=== PATIENT | female | born 1985 | race Caucasian/White ===

== ENCOUNTER 2018-12-08 15:46 | Emergency (ER) | payer MEDICAID ==
[~2018-12-08] VITALS: Ht 162.6 cm; Wt 96.5 kg
[~2018-12-08 15:46] MED LIST: ACET325T33 PO
[2018-12-08 15:49] VITALS: Ht 162.6 cm; Wt 96.5 kg
[2018-12-08 16:00] VITALS: BP 123/70; PULSE 84; RESP 16
--- NOTE | 2018-12-08 17:00 | ERD ---
ER Documentation Chief Complaint Chief Complaint sent from dental office , locked jaw while dental procedure HPI Patient is a 33-year-old female with no medical problems who presents with a jaw dislocation. The patient was at a dental office getting work done and had a jaw dislocation that they were unable to relocate. She said that her jaw is been dislocated for about 2 hours. Upon review of old medical records the patient has one previous visit to the ER. She has had no medications as of yet. ROS All systems reviewed and are negative except as per history of present illness. Medications Home Meds Reported Medications Acetaminophen* (Tylenol*) 325 Mg Tablet, 325 MG PO 07/13/13 Allergies Allergies: Coded Allergies: No Known Allergy (Unverified , 07/13/13) PMhx/Soc History of Surgery: Yes (C section) Anesthesia Reaction: No Hx Neurological Disorder: No Hx Respiratory Disorders: No Hx Cardiac Disorders: No Hx Psychiatric Problems: No Hx Miscellaneous Medical Probl: No Hx Alcohol Use: No Hx Substance Use: No Hx Tobacco Use: No Smoking Status: Never smoker FmHx Family History: No diabetes Physical Exam Vitals Vital Signs Date Temp Pulse Resp B/P (MAP) Pulse Ox O2 O2 Flow FiO2 Time Delivery Rate 12/08/18 98.1 84 16 123/70 99 Room Air 16:00 (87) 12/08/18 98.1 76 16 123/70 99 15:49 (87) Physical Exam Const: Moderate distress Head: Atraumatic Eyes: Normal Conjunctiva ENT: Mouth is open and patient is unable to close jaw at this time Neck: Full range of motion. No meningismus. Resp: Clear to auscultation bilaterally Cardio: Regular rate and rhythm, no murmurs Abd: Soft, non tender, non distended. Normal bowel sounds Skin: No petechiae or rashes Back: No midline or flank tenderness Ext: No cyanosis, or edema Neur: Awake and alert Psych: Normal Mood and Affect Procedures/MDM Dislocation reduction: I used an extra oral technique and was able to put pressure posteriorly on the left TMJ and pull the right mandible anteriorly. Within seconds I felt a clunk in the patient's jaw was relocated without difficulty. She tolerated the entire procedure. No sedation or pain medication was needed. Patient is a 33-year-old female who presents with a jaw dislocation. I reduce the jaw dislocation with an extraoral technique. The patient tolerated the entire procedure. She will be discharged home. She was instructed not to open her mouth to widely and to eat small meals within the next few days. Departure Diagnosis: Primary Impression: Jaw dislocation Encounter type: initial encounter Qualified Codes: S03.00XA - Dislocation of jaw, unspecified side, initial encounter Condition: Fair Patient Instructions: Mandible Dislocation Referrals: Your doctor Additional Instructions: Llame al doctor nombrado abajo (Referral Sources) MAANA y mary elizabet AUDRA PARA DENTRO DE ELIZABET SEMANA. Dgale a la secretaria que nosotros le instruimos hacer esta audra.Avise o llame si cook condicin se empeora antes de la audra. ABDOUL VAZQUEZ MD Dec 08, 2018 17:00
== END 2018-12-08 16:25 | disposition home or self-care (01) ==
LOC: E/R 15:46
DX: S03.00XA Dislocation of jaw, unspecified side, initial encounter (principal); X58.XXXA Exposure to other specified factors, initial encounter; Y92.9 Unspecified place or not applicable
CPT/HCPCS: 21480; Z7502